=== PATIENT | male | born 1970 | race Caucasian/White ===

== ENCOUNTER 2017-08-13 14:04 | Inpatient (IN) | payer OTHER ==
[2017-08-13 17:53] VITALS: BMI 53.7
--- NOTE | 2017-08-13 20:24 | HP ---
CIWA Score - CIWA Score Nausea/Vomitin Muscle Tremors: 3 Anxiety: 3 Agitation: 3 Paroxysmal Sweats: 1-Minimal Palms Moist Orientation: 0-Oriented Tacttile Disturbances: 2-Mild Itch/Numbness/Burn Auditory Disturbances: 2-Mild Harshness/Frighten Visual Disturbances: 1-Very Mild Sensitivity Headache: 2-Mild CIWA-Ar Total Score: 20 Admission ROS BHS - HPI Chief Complaint: i am here for detox from alcohol,cocaine and marijuana Allergies/Adverse Reactions: Allergies Allergy/AdvReac Type Severity Reaction Status Date / Time No Known Drug Allergies Allergy Verified 08/13/17 19:08 History of Present Illness: this 46 years old male with alcohol,cocaine,marijuana,seeking detox,last treatment [address] [facility] nicotine dependence schizoaffective disorder longest period of sobriety 27 years arthritis gerd - Ebola screening Have you traveled outside of the country in the last 21 days: No (N) Have you had contact with anyone from an Ebola affected area: No Have you been sick,other than usual withdrawal symptoms: No Do you have a fever: No - Review of Systems Constitutional: Loss of Appetite, Malaise, Night Sweats, Changes in sleep EENT: reports: Nose Congestion Respiratory: reports: No Symptoms reported Cardiac: reports: No Symptoms Reported GI: reports: Diarrhea, Nausea, Poor Fluid Intake, Vomiting : reports: No Symptoms Reported Musculoskeletal: reports: Back Pain, Muscle Pain Integumentary: reports: Dryness Neuro: reports: Tremors Endocrine: reports: No Symptoms Reported Hematology: reports: No Symptoms Reported Psychiatric: reports: No Sypmtoms Reported, Judgement Intact, Mood/Affect Appropiate, Orientated x3 (schizoaffective) Patient History - Patient Medical History Hx Anemia: No Hx Asthma: No Hx Chronic Obstructive Pulmonary Disease (COPD): No Hx Cancer: No Hx Cardiac Disorders: No Hx Congestive Heart Failure: No Hx Hypertension: No Hx Hypercholesterolemia: No Hx Pacemaker: No HX Cerebrovascular Accident: No Hx Seizures: No Hx Dementia: No Hx Diabetes: Yes (type 2 dm ) Hx Gastrointestinal Disorders: No Hx Liver Disease: No Hx Genitourinary Disorders: No Hx Sexually Transmitted Disorders: No Hx Renal Disease (ESRD): No Hx Thyroid Disease: No Hx Human Immunodeficiency Virus (HIV): No (last 11/15 negative) Hx Hepatitis C: No Hx Depression: No Hx Suicide Attempt: Yes (walking into traffic age of 14 years) Hx Bipolar Disorder: No Hx Schizophrenia: Yes Other Medical History: no suicidal,no homicidal - Patient Surgical History Past Surgical History: Yes Hx Neurologic Surgery: No Hx Cataract Extraction: No Hx Cardiac Surgery: No Hx Lung Surgery: No Hx Breast Surgery: No Hx Breast Biopsy: No Hx Abdominal Surgery: Yes (gastroplasty) Hx Appendectomy: No Hx Cholecystectomy: Yes Hx Genitourinary Surgery: Yes (undescended testicle) Hx Section: No Hx Orthopedic Surgery: No Anesthesia Reaction: No - PPD History Previous Implant?: No Documented Results: Positive w/o proof Implanted On Prior [facility] Admission?: No PPD to be Administered?: No - Smoking Cessation Smoking history: Current every day smoker Have you smoked in the past 12 months: Yes Aproximately how many cigarettes per day: 10 Hx Chewing Tobacco Use: No Initiated information on smoking cessation: Yes 'Breaking Loose' booklet given: 08/13/17 - Substances Abused Alcohol Route: Oral Frequency: 3-6 times per week Amount used: 40 oz Age of first use: 14 Date of Last Use: 08/11/17 Crack Route: Smoking Frequency: 3-6 times per week Amount used: $400 Age of first use: 24 Date of Last Use: 08/12/17 Marijuana/Hashish Route: Smoking Frequency: Daily Amount used: $30 Age of first use: 11 Date of Last Use: 08/12/17 Family Disease History - Family Disease History Family Disease History: Heart Disease: Father, Other: Mother (htn) Admission Physical Exam S - Vital Signs Vital Signs: Vital Signs - 24 hr 08/13/17 17:51 Temperature 97.7 F Pulse Rate 92 H Respiratory 18 Rate Blood Pressure 160/77 - Physical General Appearance: Yes: Moderate Distress, Obese, Tremorous, Irritable, Sweating, Anxious HEENTM: Yes: Within Normal Limits, LISSY, Pharynx Normal Respiratory: Yes: Lungs Clear, Normal Breath Sounds, No Respiratory Distress Neck: Yes: Within Normal Limits, Supple, Trachea in good position Breast: Yes: Other (gynecomastia) Cardiology: Yes: Within Normal Limits, Regular Rhythm, Regular Rate, S1, S2 Abdominal: Yes: Within Normal Limits, Surgical Scar, Other (gastropalsty at age of 14 tears cholecystectomy at age 25) Genitourinary: Yes: Within Normal Limits, Other (orchidectomy for torsion of testes right and prosthesis) Back: Yes: Within Normal Limits Musculoskeletal: Yes: Back pain, Muscle Pain Extremities: Yes: Tremors 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 intact, Alert, Motor Strength 5/5 Integumentary: Yes: Dry Lymphatic: Yes: Within Normal Limits - Diagnostic (1) Alcohol dependence with uncomplicated withdrawal Current Visit: Yes Status: Acute (2) Cocaine dependence Current Visit: Yes Status: Acute (3) Cannabis dependence Current Visit: Yes Status: Acute (4) Obese Current Visit: Yes Status: Acute (5) Schizophrenia Current Visit: Yes Status: Acute (6) DM2 (diabetes mellitus, type 2) Current Visit: Yes Status: Acute (7) Status post gastroplasty Current Visit: Yes Status: Acute (8) S/P cholecystectomy Current Visit: Yes Status: Acute (9) S/P radical unilateral orchiectomy Current Visit: Yes Status: Acute (10) Nicotine dependence Current Visit: Yes Status: Acute (11) Edema of both legs Current Visit: Yes Status: Acute Cleared for Admission [facility] - Detox or Rehab [facility] Level of Care: Medically Managed Detox Regimen/Protocol: Librium [facility] Breath Alcohol Content Breath Alcohol Content: 0 Urine Drug Screen - Results Drug Screen Negative: No Urine Drug Screen Results: THC-Marijuana, DANNIELLE-Cocaine
[2017-08-13] MEDS ORDERED: LOPERAMIDE HCL 2 MG CAPSULE PO PRN (20:40)
[2017-08-13] MEDS ORDERED: chlordiazePOXIDE HCL 25 MG CAPSULE PO ONE (20:40)
[2017-08-13] MEDS ORDERED: IBUPROFEN 400 MG TABLET (FP) PO PRN (20:40)
[2017-08-13] MEDS ORDERED: P-EPHED 60MG/TRIPROLIDI 2.5MG TABLET PO PRN (20:40)
[2017-08-13] MEDS ORDERED: guaiFENesin/D-METHORPHAN HB 10 ML UNIT-DOSE CUPS PO PRN (20:40)
[2017-08-13] MEDS ORDERED: hydrOXYzine PAMOATE 50 MG CAPSULE (FP) PO PRN (20:40)
[2017-08-13] MEDS ORDERED: MAGNESIUM CITRATE 300 ML BOTTLE PO PRN (20:40)
[2017-08-13] MEDS ORDERED: NICOTINE POLACRILEX 2 MG GUM BC PRN (20:40)
[2017-08-13] MEDS ORDERED: MAGNESIUM HYDROX 2400MG/30ML ORAL SUSPENSION 30 ML CUP PO PRN (20:40)
[2017-08-13] MEDS ORDERED: MENTHOL/PHENOL 1 EACH UD MM PRN (20:40)
[2017-08-13] MEDS ORDERED: ACETAMINOPHEN 325 MG TABLET (FP) PO PRN (20:40)
[2017-08-13] MEDS ORDERED: MAG HYDROX/AL HYDROX/SIMETH 30 ML UNIT-DOSE CUP PO PRN (20:40)
[2017-08-13] MEDS ORDERED: chlordiazePOXIDE HCL 25 MG CAPSULE PO PRN (20:40)
[2017-08-13] MEDS: metFORMIN HCL 500 MG TABLET (FP) PO SCH (21:40)
[2017-08-13] MEDS: THIAMINE HCL 100 MG TABLET (FP) PO SCH (21:43)
[2017-08-13] MEDS: chlordiazePOXIDE HCL 25 MG CAPSULE PO SCH (22:28)
[2017-08-14] MEDS: chlordiazePOXIDE HCL 25 MG CAPSULE PO SCH ×4 (06:44→22:32)
[2017-08-14] MEDS: metFORMIN HCL 500 MG TABLET (FP) PO SCH ×2 (06:44→17:34)
[2017-08-14] MEDS: PANTOPRAZOLE 40 MG TABLET (FP) PO SCH (10:29)
[2017-08-14 10:30] LABS: MCH 30.2 pg (25.7-33.7); MCHC 32.9 g/dl (32.0-35.9); MEAN CELL VOLUME 91.6 fl (80-96); MEAN PLT VOLUME 7.8 fl (7.5-11.1); PLATELET COUNT 174 K/MM3 (134-434); RDW 14.4 % (11.9-15.9); WHITE BLOOD COUNT 6.3 K/mm3 (4.0-10.0)
[2017-08-14] MEDS: PRENATAL VITAMINS W/ FOLIC ACID TABLET (FP) PO SCH (10:30)
[2017-08-14 10:55] LABS: ALBUMIN 3.1 g/dl (3.4-5.0); ANION GAP 10 (8-16); CALCIUM 8.5 mg/dL (8.5-10.1); CO2 29 mmol/L (21-32); GLUCOSE,RANDOM 90 mg/dL (74-106); SGOT/AST 31 U/L (15-37); SGPT/ALT 56 U/L (12-78)
[2017-08-14 10:57] LABS: ALK PHOS 63 U/L (45-117); BILIRUBIN,TOTAL 0.7 mg/dL (0.2-1.0); TOT PROT 6.9 g/dl (6.4-8.2)
--- NOTE | 2017-08-14 11:35 | CONSULT ---
[facility] Psychiatric Consult - Data Date of interview: 08/14/17 Admission source: [facility] Identifying data: This is 46 years old male with morbid obesity, with no psychiatric hospitalization history intoxicated with: Alcohol, Cannabis, Cocaine, Nicotine Substance Abuse History: Smoking history: Current every day smoker. Have you smoked in the past 12 months: Yes. Aproximately how many cigarettes per day: 10. Hx Chewing Tobacco Use: No. Initiated information on smoking cessation: Yes. 'Breaking Loose' booklet given: 08/13/17. - Substances Abused. Alcohol. Route: Oral. Frequency: 3-6 times per week. Amount used: 40 oz. Age of first use: 14. Date of Last Use: 08/11/17. Crack. Route: Smoking. Frequency: 3-6 times per week. Amount used: $400. Age of first use: 24. Date of Last Use: 08/12/17. Marijuana/Hashish. Route: Smoking. Frequency: Daily. Amount used: $30. Age of first use: 11. Date of Last Use: 08/12/17 Medical History: DM-2.oBESITY, Lower extremities edema, GERD Psychiatric History: PATIEMNT REPORTS HISTORY OF SCHIZOPHRENIA WITH NO PSYCHIATRIC HOSPITALIZATION HISTORY, REPORTS TAKING PRIOR TO ADMISSION: WELLBUTRIN 100MG POQD Physical/Sexual Abuse/Trauma History: Unclear Additional Comment: Welbutrin 100MG POQD Mental Status Exam - Mental Status Exam Alert and Oriented to: Person Cognitive Function: Fair Patient Appearance: Unkempt Mood: Sad Affect: Flat Patient Behavior: Sedated Speech Pattern: Delayed Voice Loudness: Mildly Soft/Quiet Thought Process: Circumstantial Thought Disorder: Being Controlled Hallucinations: Denies Suicidal Ideation: Denies Homicidal Ideation: Denies Insight/Judgement: Fair Sleep: Difficulty falling asleep Appetite: Weight gain Muscle strength/Tone: Mild Hypotonicity Gait/Station: Shuffling Additional Comments: Welbutrin 100MG POQD Psychiatric Findings - Problem List ([place] 1, 2,3) (1) Morbid obesity Current Visit: Yes Status: Acute (2) Alcohol dependence with uncomplicated withdrawal Current Visit: Yes Status: Acute (3) Cannabis dependence Current Visit: Yes Status: Acute (4) Cocaine dependence Current Visit: Yes Status: Acute (5) Nicotine dependence Current Visit: Yes Status: Acute (6) Schizophrenia Current Visit: Yes Status: Acute (7) Status post gastroplasty Current Visit: Yes Status: Acute - Initial Treatment Plan Initial Treatment Plan: Welbutrin 100MG POQD
--- NOTE | 2017-08-14 12:38 | EKG ---
Test Reason : Blood Pressure : / mmHG Vent. Rate : 096 BPM Atrial Rate : 096 BPM P-R Int : 140 ms QRS Dur : 088 ms QT Int : 356 ms P-R-T Axes : 051 -52 048 degrees QTc Int : 449 ms NORMAL SINUS RHYTHM POSSIBLE LEFT ATRIAL ENLARGEMENT LEFT AXIS DEVIATION ABNORMAL ECG NO PREVIOUS ECGS AVAILABLE Confirmed by CEDRIC MAIN MD ([id number]) on 08/14/2017 12:37:47 PM Referred By: Confirmed By:CEDRIC MAIN MD
--- NOTE | 2017-08-14 14:59 | PN ---
[facility] CIWA - CIWA Score Nausea/Vomitin-No Nausea/No Vomiting Muscle Tremors: 3 Anxiety: 4-Mod. Anxious/Guarded Agitation: 2 Paroxysmal Sweats: 3 Orientation: 0-Oriented Tacttile Disturbances: 2-Mild Itch/Numbness/Burn Auditory Disturbances: 2-Mild Harshness/Frighten Visual Disturbances: 0-None Headache: 0-None Present CIWA-Ar Total Score: 16 BHS Progress Note (SOAP) Subjective: Tremors, Body Aches, Sweating, Poor Appetite, Interrupted Sleep. Objective: PT. A & O X 3, OBSERVED AMBULATING ON UNIT. NO ACUTE DISTRESS. 08/14/17 14:57 Vital Signs Temperature 99.8 F H 08/14/17 13:26 Pulse Rate 87 08/14/17 13:26 Respiratory Rate 20 08/14/17 13:26 Blood Pressure 132/94 08/14/17 13:26 O2 Sat by Pulse Oximetry (%) Laboratory Tests 08/13/17 08/14/17 08/14/17 21:19 04:00 04:00 WBC 6.3 RBC 5.86 H Hgb 17.7 H Hct 53.6 H MCV 91.6 MCH 30.2 MCHC 32.9 RDW 14.4 Plt Count 174 MPV 7.8 Sodium 141 Potassium 4.0 Chloride 102 Carbon Dioxide 29 Anion Gap 10 BUN 13 Creatinine 1.0 Creat Clearance w eGFR > 60 POC Glucometer 122 Random Glucose 90 Calcium 8.5 Total Bilirubin 0.7 AST 31 ALT 56 Alkaline Phosphatase 63 Total Protein 6.9 Albumin 3.1 L RPR Titer 08/14/17 04:00 WBC RBC Hgb Hct MCV MCH MCHC RDW Plt Count MPV Sodium Potassium Chloride Carbon Dioxide Anion Gap BUN Creatinine Creat Clearance w eGFR POC Glucometer Random Glucose Calcium Total Bilirubin AST ALT Alkaline Phosphatase Total Protein Albumin RPR Titer Nonreactive LABS NOTED. UA RESULTS PENDING. 08/14/17 14:59 Assessment: 08/14/17 14:57 WITHDRAWAL SYMPTOMS. Plan: CONTINUE DETOX. INCREASE DAILY PO FLUID INTAKE. PRN FLEXERIL PO FOR BODY ACHES / MUSCLE SPASMS.
--- NOTE | 2017-08-14 18:33 | PN ---
[facility] Progress Note Note: received nurse call that the patient refuses librium 50 mg one dose
[2017-08-14] MEDS: CYCLOBENZAPRINE HCL 10 MG TABLET (FP) PO PRN (22:32)
[2017-08-14] MEDS: THIAMINE HCL 100 MG TABLET (FP) PO SCH (22:32)
[2017-08-15] MEDS: chlordiazePOXIDE HCL 25 MG CAPSULE PO SCH ×3 (06:00→17:10)
[2017-08-15] MEDS: metFORMIN HCL 500 MG TABLET (FP) PO SCH ×2 (07:30→17:10)
[2017-08-15] MEDS: PRENATAL VITAMINS W/ FOLIC ACID TABLET (FP) PO SCH (10:27)
[2017-08-15] MEDS: PANTOPRAZOLE 40 MG TABLET (FP) PO SCH (10:27)
--- NOTE | 2017-08-15 14:08 | PN ---
S CIWA - CIWA Score Nausea/Vomitin Muscle Tremors: None Anxiety: 4-Mod. Anxious/Guarded Agitation: 2 Paroxysmal Sweats: 3 Orientation: 2-Disoriented Date<2 days Tacttile Disturbances: 1-Very Mild Itch/Numbness Auditory Disturbances: 0-None Visual Disturbances: 3-Moderate Sensitivity Headache: 0-None Present CIWA-Ar Total Score: 18 BHS Progress Note (SOAP) Subjective: Sweating, Nausea, Anxious, Fatigue. Objective: PT. A & O X 2 (UNCERTAIN ABOUT DAY / DATE). PT. OBSERVED AMBULATING ON UNIT. NO ACUTE DISTRESS. 08/15/17 14:06 Vital Signs Temperature 95.2 F L 08/15/17 10:21 Pulse Rate 84 08/15/17 10:21 Respiratory Rate 18 08/15/17 10:21 Blood Pressure 144/103 08/15/17 10:21 O2 Sat by Pulse Oximetry (%) Laboratory Tests 08/13/17 08/14/17 08/14/17 21:19 04:00 04:00 WBC 6.3 RBC 5.86 H Hgb 17.7 H Hct 53.6 H MCV 91.6 MCH 30.2 MCHC 32.9 RDW 14.4 Plt Count 174 MPV 7.8 Sodium 141 Potassium 4.0 Chloride 102 Carbon Dioxide 29 Anion Gap 10 BUN 13 Creatinine 1.0 Creat Clearance w eGFR > 60 POC Glucometer 122 Random Glucose 90 Calcium 8.5 Total Bilirubin 0.7 AST 31 ALT 56 Alkaline Phosphatase 63 Total Protein 6.9 Albumin 3.1 L RPR Titer 08/14/17 04:00 WBC RBC Hgb Hct MCV MCH MCHC RDW Plt Count MPV Sodium Potassium Chloride Carbon Dioxide Anion Gap BUN Creatinine Creat Clearance w eGFR POC Glucometer Random Glucose Calcium Total Bilirubin AST ALT Alkaline Phosphatase Total Protein Albumin RPR Titer Nonreactive LABS NOTED. UA RESULTS PENDING. 08/15/17 14:08 Assessment: 08/15/17 14:07 WITHDRAWAL SYMPTOMS. Plan: CONTINUE DETOX. INCREASE DAILY PO FLUID INTAKE. ENCOURAGE AMBULATION.
[2017-08-15 16:59] LABS: URINE APPEARANCE CLEAR; URINE BILIRUBIN NEGATIVE (NEGATIVE); URINE BLOOD NEGATIVE (NEGATIVE); URINE COLOR YELLOW; URINE GLUCOSE (UA) NEGATIVE (NEGATIVE); URINE KETONE NEGATIVE (NEGATIVE); URINE NITRITE NEGATIVE (NEGATIVE); URINE PROTEIN NEGATIVE (NEGATIVE)
[2017-08-15 20:52] LABS: URINE LEUK ESTERASE Negative (NEGATIVE)
[2017-08-15] MEDS: THIAMINE HCL 100 MG TABLET (FP) PO SCH (22:33)
[2017-08-15] MEDS: chlordiazePOXIDE 5 MG CAPSULE PO SCH (22:33)
[2017-08-16] MEDS: chlordiazePOXIDE 5 MG CAPSULE PO SCH ×3 (06:14→17:54)
[2017-08-16] MEDS: metFORMIN HCL 500 MG TABLET (FP) PO SCH ×2 (06:14→17:54)
[2017-08-16] MEDS: PRENATAL VITAMINS W/ FOLIC ACID TABLET (FP) PO SCH (10:27)
[2017-08-16] MEDS: CYCLOBENZAPRINE HCL 10 MG TABLET (FP) PO PRN (10:28)
[2017-08-16] MEDS: PANTOPRAZOLE 40 MG TABLET (FP) PO SCH (10:28)
--- NOTE | 2017-08-16 12:47 | PN ---
BHS Progress Note (SOAP) Subjective: Body Aches, H/A. Objective: PT. A & O X 2 (UNCERTAIN ABOUT DAY / DATE). PT. OBSERVED AMBULATING ON UNIT. NO ACUTE DISTRESS. 08/16/17 12:45 Vital Signs Temperature 95.6 F L 08/16/17 09:44 Pulse Rate 88 08/16/17 09:44 Respiratory Rate 18 08/16/17 09:44 Blood Pressure 132/87 08/16/17 09:44 O2 Sat by Pulse Oximetry (%) Laboratory Tests 08/13/17 08/14/17 08/14/17 21:19 04:00 04:00 WBC 6.3 RBC 5.86 H Hgb 17.7 H Hct 53.6 H MCV 91.6 MCH 30.2 MCHC 32.9 RDW 14.4 Plt Count 174 MPV 7.8 Sodium 141 Potassium 4.0 Chloride 102 Carbon Dioxide 29 Anion Gap 10 BUN 13 Creatinine 1.0 Creat Clearance w eGFR > 60 POC Glucometer 122 Random Glucose 90 Calcium 8.5 Total Bilirubin 0.7 AST 31 ALT 56 Alkaline Phosphatase 63 Total Protein 6.9 Albumin 3.1 L Urine Color Urine Appearance Urine pH Ur Specific [place] Urine Protein Urine Glucose (UA) Urine Ketones Urine Blood Urine Nitrite Urine Bilirubin Urine Urobilinogen Ur Leukocyte Esterase RPR Titer 08/14/17 08/15/17 04:00 15:00 WBC RBC Hgb Hct MCV MCH MCHC RDW Plt Count MPV Sodium Potassium Chloride Carbon Dioxide Anion Gap BUN Creatinine Creat Clearance w eGFR POC Glucometer Random Glucose Calcium Total Bilirubin AST ALT Alkaline Phosphatase Total Protein Albumin Urine Color Yellow Urine Appearance Clear Urine pH 6.0 Ur Specific [place] 1.016 Urine Protein Negative Urine Glucose (UA) Negative Urine Ketones Negative Urine Blood Negative Urine Nitrite Negative Urine Bilirubin Negative Urine Urobilinogen 2.0 Ur Leukocyte Esterase Negative RPR Titer Nonreactive LABS NOTED. Assessment: 08/16/17 12:45 WITHDRAWAL SYMPTOMS. Plan: CONTINUE DETOX.
[2017-08-16] MEDS: THIAMINE HCL 100 MG TABLET (FP) PO SCH (22:35)
[2017-08-16] MEDS: chlordiazePOXIDE HCL 10 MG CAPSULE PO SCH (22:35)
[2017-08-17] MEDS: metFORMIN HCL 500 MG TABLET (FP) PO SCH (06:22)
[2017-08-17] MEDS: chlordiazePOXIDE HCL 10 MG CAPSULE PO SCH (06:22)
[2017-08-17 06:41] VITALS: BP 125/87; PULSE 76; TEMP 98.4
--- NOTE | 2017-08-17 12:02 | DS ---
[facility] Detox Discharge Summary Admission Date: 08/13/17 Discharge Date: 08/17/17 - History Present History: Alcohol Dependence, Cannabis Dependence, Cocaine Dependence Pertinent Past History: DMT2 Obesity PPD Positive - Physical Exam Results Vital Signs: Vital Signs Temperature 98.4 F 08/17/17 06:41 Pulse Rate 76 08/17/17 06:41 Respiratory Rate 18 08/17/17 06:41 Blood Pressure 125/87 08/17/17 06:41 O2 Sat by Pulse Oximetry (%) Pertinent Admission Physical Exam Findings: Withdrawal symptoms Laboratory Tests 08/13/17 08/14/17 08/14/17 21:19 04:00 04:00 WBC 6.3 RBC 5.86 H Hgb 17.7 H Hct 53.6 H MCV 91.6 MCH 30.2 MCHC 32.9 RDW 14.4 Plt Count 174 MPV 7.8 Sodium 141 Potassium 4.0 Chloride 102 Carbon Dioxide 29 Anion Gap 10 BUN 13 Creatinine 1.0 Creat Clearance w eGFR > 60 POC Glucometer 122 Random Glucose 90 Calcium 8.5 Total Bilirubin 0.7 AST 31 ALT 56 Alkaline Phosphatase 63 Total Protein 6.9 Albumin 3.1 L Urine Color Urine Appearance Urine pH Ur Specific [place] Urine Protein Urine Glucose (UA) Urine Ketones Urine Blood Urine Nitrite Urine Bilirubin Urine Urobilinogen Ur Leukocyte Esterase RPR Titer 08/14/17 08/15/17 04:00 15:00 WBC RBC Hgb Hct MCV MCH MCHC RDW Plt Count MPV Sodium Potassium Chloride Carbon Dioxide Anion Gap BUN Creatinine Creat Clearance w eGFR POC Glucometer Random Glucose Calcium Total Bilirubin AST ALT Alkaline Phosphatase Total Protein Albumin Urine Color Yellow Urine Appearance Clear Urine pH 6.0 Ur Specific [place] 1.016 Urine Protein Negative Urine Glucose (UA) Negative Urine Ketones Negative Urine Blood Negative Urine Nitrite Negative Urine Bilirubin Negative Urine Urobilinogen 2.0 Ur Leukocyte Esterase Negative RPR Titer Nonreactive Labs noted - Treatment Hospital Course: Detox Protocol Followed, Detoxed Safely, Responded well, Discharged Condition Good - Medication Discharge Medications: Ambulatory Orders Omeprazole 40 mg PO DAILY 08/13/17 Bupropion HCl [Wellbutrin Sr] 100 mg PO DAILY #30 tab.[id number] 08/14/17 Metformin HCl 500 mg PO BID #60 tablet 08/16/17 - Diagnosis (1) Alcohol dependence with uncomplicated withdrawal Status: Acute (2) Cannabis dependence Status: Chronic (3) Cocaine dependence Status: Chronic Qualifiers: Substance use status: uncomplicated Qualified Code(s): F14.20 - Cocaine dependence, uncomplicated (4) DM2 (diabetes mellitus, type 2) Status: Chronic (5) Morbid obesity Status: Chronic (6) Nicotine dependence Status: Chronic (7) Obese Status: Chronic - AMA Did Patient Leave Against Medical Advice: No (F/U with PCP in 1-2 weeks)
== END 2017-08-17 08:50 | disposition home or self-care (01) | DRG 897 ==
LOC: YASAS 14:04 → Y3N 19:36
PROVIDERS: ADMIT Internal Medicine; ATTEND Internal Medicine
PROC: HZ2ZZZZ Detoxification Services for Substance Abuse Treatment (ICD-10-PCS; principal; 2017-08-13)
DX: F10.230 Alcohol dependence with withdrawal, uncomplicated (principal); F14.20 Cocaine dependence, uncomplicated; Z68.43 Body mass index [BMI] 50.0-59.9, adult; F12.20 Cannabis dependence, uncomplicated; F17.210 Nicotine dependence, cigarettes, uncomplicated; F20.9 Schizophrenia, unspecified; E11.9 Type 2 diabetes mellitus without complications; Z79.84 Long term (current) use of oral hypoglycemic drugs; E66.01 Morbid (severe) obesity due to excess calories; Z91.5 Personal history of self-harm
CPT/HCPCS: 36415; 71010-TC; 80053; 81003; 85027; 86593; 93005; 93010